=== PATIENT | female | born 1950 | race Caucasian/White ===

== ENCOUNTER 2022-04-28 15:44 | Inpatient (IN) | payer MEDICARE, OTHER ==
[~2022-04-28] VITALS: Ht 165.1 cm; Wt 64.9 kg
--- NOTE | 2022-04-28 16:00 | NUR ---
[id number] FRM [facility] FOR NOTED O2 DESATURATION, TACHYCARDIA AND FEVER X TODAY. PLACED ON BED, AWAKE ALERT RESPONDING TO VERBAL STIMULI, BREATHING EVEN AND UNLABORED SATURATING AT 95%RA, ATTACHED TO MINITOR SINUS TACHY. MO-135, WARM TO TOUCH. HISTORY TRAUMATIC BRAIN INJURY, NORMAL PRESSURE HYDROCEPHALUS.
[2022-04-28] MEDS ORDERED: AMLO-212 PO (16:13)
[2022-04-28] MEDS ORDERED: MAGN400O6 PO (16:13)
[2022-04-28] MEDS ORDERED: BISA10SU11 RC (16:13)
[2022-04-28] MEDS ORDERED: POTA10TA10 PO (16:13)
[2022-04-28] MEDS ORDERED: POLY17PO4 PO (16:13)
[2022-04-28] MEDS ORDERED: CEFT1VIA15 IV (16:13)
[2022-04-28] MEDS ORDERED: HEPA50007 SQ (16:13)
[2022-04-28] MEDS ORDERED: ACET-868 PO (16:13)
[2022-04-28] MEDS ORDERED: ASPI-1169 PO (16:13)
[2022-04-28] MEDS ORDERED: AMIN30LI2 PO (16:13)
[2022-04-28] MEDS ORDERED: ATOR40TA PO (16:13)
[2022-04-28] MEDS ORDERED: ALBU8.5H8 IH (16:13)
[2022-04-28] MEDS ORDERED: NA P133E RC (16:13)
[2022-04-28] MEDS ORDERED: SENN-261 PO (16:13)
--- NOTE | 2022-04-28 16:15 | NUR ---
BLOOD DRAWN SENT TO LAB
[2022-04-28] MEDS ORDERED: ACETAMINOPHEN ES 500 MG TABLET ONE (16:27)
[2022-04-28] MEDS ORDERED: ACETAMINOPHEN ES 500 MG TABLET PO ONE (16:30)
--- NOTE | 2022-04-28 16:40 | NUR ---
SWAB FOR COVID19 SENT TO LAB
[2022-04-28 17:33] LABS: BASOPHILS % (AUTO) 0.1 % (0.0-2.0); EOSINOPHILS % (AUTO) 0.2 % (0.0-6.0); HEMATOCRIT 32 % (33-45); HEMOGLOBIN 10.5 g/dL (11.5-14.8); LYMPHOCYTES # (AUTO) 0.3 K/uL (0.8-4.8); LYMPHOCYTES % (AUTO) 2.4 % (20.0-44.0); MEAN CORPUSCULAR HGB CONC 33 g/dl (31.0-36.0); MEAN CORPUSCULAR VOLUME 83 fL (82-100); MONOCYTES # (AUTO) 0.3 K/uL (0.1-1.30); NEUTROPHILS # (AUTO) 12.9 K/uL (1.8-8.9); NEUTROPHILS % (AUTO) 95.3 % (43.0-81.0); PLATELET COUNT (AUTO) 318 K/uL (150-450); RED BLOOD CELL COUNT(AUTO) 3.87 MIL/uL (4.0-5.2); WHITE BLOOD COUNT (AUTO) 13.5 K/uL (4.3-11.0)
[2022-04-28 17:41] LABS: CALCIUM, SERUM 9.1 mg/dL (8.5-10.1); CARBON DIOXIDE 21 mmol/L (21-32); CHLORIDE 98 mmol/L (98-107); CREATININE 1.1 mg/dL (0.6-1.3); GLUCOSE 102 mg/dL (74-106); SODIUM SERUM 132 mmol/L (136-145); UREA NITROGEN, BLOOD 31 mg/dL (7-18)
[2022-04-28 17:46] LABS: ALANINE AMINOTRANSFERASE 49 U/L (12-78); ALBUMIN 2.2 g/dL (3.4-5.0); ALKALINE PHOSPHATASE 214 U/L (46-116); ASPARTATE AMINOTRANSFERASE 70 U/L (15-37); BILIRUBIN,DIRECT 0.3 mg/dL (0.0-0.2); BILIRUBIN,TOTAL 0.4 mg/dL (0.2-1.0); TOTAL PROTEIN, SERUM 7.7 g/dL (6.4-8.2)
--- NOTE | 2022-04-28 17:52 | NUR ---
CALLED NURSING SUP REGARDING PT BED
[2022-04-28] MEDS ORDERED: VANCOMYCIN 1 GM in IV D5W 250 ML IV ONE (18:00)
[2022-04-28] MEDS ORDERED: CEFEPIME 1 GM in IV D5W 50 ML IV ONE (18:00)
[2022-04-28] MEDS ORDERED: IV NS 0.9% 1,000 ML BAG IV ONE (18:00)
--- NOTE | 2022-04-28 18:20 | NUR ---
PAGED DR. NOBLE
--- NOTE | 2022-04-28 18:57 | NUR ---
ROOM 105
[2022-04-28] MEDS ORDERED: MAGNESIUM HYDROXIDE 30 ML UDC PO PRN (19:00)
[2022-04-28] MEDS ORDERED: Z GUARD REMEDY 4 OZ OINT TP PRN (19:00)
[2022-04-28] MEDS ORDERED: MAG HYDROX/AL HYDROX/SIMETH 30 ML UDC PO PRN (19:00)
[2022-04-28] MEDS ORDERED: ONDANSETRON HCL/PF 4 MG/2 ML VIAL IVP PRN (19:00)
[2022-04-28] MEDS ORDERED: ACETAMINOPHEN 325 MG TABLET PO PRN ×2 (19:00)
--- NOTE | 2022-04-28 19:00 | NUR ---
FOLLEY CATH INSERTED FR16 DRAINING TO A CLOUDY URINE OUTPUT. URINE SAMPLE SENT TO LAB.
[2022-04-28] MEDS ORDERED: ALBUTEROL FS 2.5 MG/0.5 ML VIAL.NEB IH PRN (19:30)
[2022-04-28] MEDS ORDERED: ENOXAPARIN SODIUM 40 MG/0.4 ML DISP.SYRIN SQ SCH (19:30)
--- NOTE | 2022-04-28 19:58 | NUR ---
REPORT GIVEN TO LEVY POWERS 105 FOR [facility]
[2022-04-28 20:00] VITALS: BP 97/52
[2022-04-28 20:01] LABS: BILIRUBIN,URINE MODERATE (NEGATIVE); COLOR,URINE YELLOW (YELLOW); LEUKOCYTE ESTERASE ,URINE MODERATE (NEGATIVE); NITRITE, URINE NEGATIVE (NEGATIVE); PH,URINE 6.5 (5.0-8.0); PROTEIN,URINE >=300 mg/dl (NEGATIVE); UGLUCOSE NEGATIVE (NEGATIVE)
--- NOTE | 2022-04-28 20:05 | NUR ---
LIME KILN OPERATOR NOTES: RECEIVED REPORT FROM [employer] ARCHITECTGIO WALLACE. PT TRANSFERRED TO [facility] FROM [facility] . PLACED IN ROOM 105 BED 1. PT AWAKE, ALERT/ORIENTED X 2 AND VERBALLY RESPONSIVE. BREATHING EVEN AND UNLABORED. ON ROOM AIR AND PT TOLERATED WELL. O2 SAT96%. IV ACCESS ON RT#18G AND LT HAND#20G INTACT AND PATENT. NO S/S OF INFILTRATIONS. BODY ASSESSMENT DONE. NOTED SKIN REDNESS ON LT GROIN AREA AND RT HEEL. NOTED OLD TRACH SITE AND OLD GTUBE SITE. NO OPEN SKIN OR ANY OTHER SKIN DISCOLORATIONS NOTED. NO C/O PAIN OR DISCOMFORT. NO ACUTE DISTRESS. ALL SAFETY MEASURES IN PLACE. BED IN LOWEST POSITION AND LOCKED. SIDE RAILS UP X3, PLACE CALL LIGHT WITH IN REACH. BED ALARM ON. WILL CONTINUE TO MONITOR
[2022-04-28 20:48] LABS: BACTERIA,URINE 4+ /HPF (None Seen); RBC,URINE 51-80 /HPF (0-2); SQUAMOUS EPITHELIAL CELL,UR 0-2 /HPF (None Seen); WBC,URINE TOO NUMEROUS TO COUN /HPF (0-3)
[2022-04-28] MEDS: HEPARIN SODIUM, PORCINE 5000 UNITS/1 ML VIAL SQ SCH (21:57)
[2022-04-28] MEDS: ATORVASTATIN 40 MG TABLET PO SCH (21:58)
[2022-04-28] MEDS: PIPERACILLIN /TAZOBACTAM 2.25 G in IV D5W 50 ML IV SCH (23:42)
--- NOTE | 2022-04-28 23:45 | NUR ---
RN NOTES: PT NOTED INCREASED TEMP 100.8 F. HR 135. TYLENOL 325 MG 2 TABS GIVEN PER PRN ORDER. APPLIED ICE PACK. PT TOLERATED WELL. WILL CONTINUE TO MONITOR
[2022-04-29] VITALS: BP 118/62
--- NOTE | 2022-04-29 01:50 | NUR ---
0150 Patient noted with a fever of 103 deg. Cooling measures rendered. Patient awake and verbally responsive. No signs of distress noted. Will cont to monitor.
[2022-04-29] MEDS: IV NS 0.9% 1,000 ML IV PRN ×2 (03:38→23:04)
[2022-04-29 04:00] VITALS: BP 105/75
[2022-04-29] MEDS: PIPERACILLIN /TAZOBACTAM 2.25 G in IV D5W 50 ML IV SCH ×4 (05:44→23:05)
--- NOTE | 2022-04-29 06:45 | NUR ---
RN CLOSING NOTES: PT AWAKE, ALERT/ORIENTED X 2 AND VERBALLY RESPONSIVE. BREATHING EVEN AND UNLABORED. ON 3L/MIN VIA N/C AND PT TOLERATED WELL. O2 SAT 99%. IV ACCESS ON RT#18G AND LT HAND#20G INTACT AND PATENT. NO S/S OF INFILTRATIONS. RUNNING N/S AT 75CC/HR. PT AFEBRILE. NO C/O PAIN OR DISCOMFORT. NO ACUTE DISTRESS. ALL DUE MEDS GIVEN ORDERED. ECHEVARRIA CATHETER HAS VERY SMALL AMOUNT OF URINE. FLUSHED WITH 30 CC OF NS. PT'S HR STILL AROUND 130-140S. ALL SAFETY MEASURES IN PLACE. BED IN LOWEST POSITION AND LOCKED. SIDE RAILS UP X3, PLACE CALL LIGHT WITH IN REACH. BED ALARM ON. WILL ENDORSE TO MORNING SHIFT NURSE.
[2022-04-29 07:26] LABS: BASOPHILS % (AUTO) 0.1 % (0.0-2.0); EOSINOPHILS % (AUTO) 0.3 % (0.0-6.0); HEMATOCRIT 30 % (33-45); HEMOGLOBIN 9.5 g/dL (11.5-14.8); LYMPHOCYTES # (AUTO) 0.8 K/uL (0.8-4.8); LYMPHOCYTES % (AUTO) 4.6 % (20.0-44.0); MEAN CORPUSCULAR HGB CONC 32 g/dl (31.0-36.0); MEAN CORPUSCULAR VOLUME 84 fL (82-100); MONOCYTES # (AUTO) 1.2 K/uL (0.1-1.30); MONOCYTES % (AUTO) 6.8 % (2.0-12.0); NEUTROPHILS # (AUTO) 15.7 K/uL (1.8-8.9); NEUTROPHILS % (AUTO) 88.2 % (43.0-81.0); PLATELET COUNT (AUTO) 227 K/uL (150-450); RED BLOOD CELL COUNT(AUTO) 3.54 MIL/uL (4.0-5.2); WHITE BLOOD COUNT (AUTO) 17.8 K/uL (4.3-11.0)
--- NOTE | 2022-04-29 07:30 | NUR ---
RN NOTES PT FOUND SUPINE DISPLAYING NO S/S OF DISTRESS, FLACC = 0 AND BREATHING IS EVEN AND UNLABORED ON 3L O2 NC. R HAND 18G & L HAND 20G ARE PATIENT AND INTACT. ECHEVARRIA CATH BELOW PATIENT DRAINING BY GRAVITY. RN WILL CONTINUE CARE PLAN AND ANTICIPATE NEEDS. SAFETY MEASURES IN PLACE, BED LOCKED AND IN LOWEST POSITION, SIDE RAILS UPX2, CALL LIGHT WITHIN REACH, BED ALARM ARMED.
[2022-04-29 08:00] VITALS: BP 80/56
[2022-04-29] MEDS: HEPARIN SODIUM, PORCINE 5000 UNITS/1 ML VIAL SQ SCH ×2 (08:38→21:23)
[2022-04-29] MEDS: VANCOMYCIN 500 MG in IV D5W 100 ML IV SCH ×2 (08:39→20:21)
[2022-04-29] MEDS: POLYETHYLENE GLYCOL 3350 17 GM POWD.PACK PO SCH (08:40)
[2022-04-29] MEDS: AMLODIPINE BESYLATE 5 MG TABLET PO SCH (08:40)
[2022-04-29 08:57] LABS: CALCIUM, SERUM 8.3 mg/dL (8.5-10.1); CREATININE 1.1 mg/dL (0.6-1.3); POTASSIUM 3.3 mmol/L (3.5-5.1)
[2022-04-29] MEDS ORDERED: PANTOPRAZOLE 40 MG VIAL IV SCH (09:00)
[2022-04-29 12:00] VITALS: BP 89/45
[2022-04-29] MEDS ORDERED: POTASSIUM CL. PREMIX PERIPHER. 50 ML IV SCH (13:00)
[2022-04-29 16:00] VITALS: BP 87/53
[2022-04-29] MEDS: ASPIRIN 81 MG TAB.CHEW PO SCH (17:54)
--- NOTE | 2022-04-29 18:00 | NUR ---
MD COMMUNICATION RN INFORMED MD THAT PT'S FAMILY HAD CONCERNS OF HEMORRHAGIC STROKE. DR NOBLE GAVE ORDERS: CT OF HEAD W/O CONTRAST. RN ACKNOWLEDGED AND WILL ENTER ORDERS.
--- NOTE | 2022-04-29 19:26 | NUR ---
RN NOTES PT FOUND SUPINE DISPLAYING NO S/S OF DISTRESS, PT ENDORSES NO PAIN AND BREATHING IS EVEN AND UNLABORED ON 3L O2 NC. R HAND 18G & L HAND 20G ARE PATIENT AND INTACT. ECHEVARRIA CATH BELOW PATIENT DRAINING BY GRAVITY. SBAR AND REPORT GIVEN TO POWDER BLENDER RN, ALL QUESTIONS ANSWERED. SAFETY MEASURES IN PLACE, BED LOCKED AND IN LOWEST POSITION, SIDE RAILS UPX2, CALL LIGHT WITHIN REACH, BED ALARM ARMED.
--- NOTE | 2022-04-29 19:35 | NUR ---
RN OPENING NOTES: RECEIVED PT IN BED, AWAKE, ALERT/ORIENTED X 2 AND VERBALLY RESPONSIVE. BREATHING EVEN AND UNLABORED. ON 3L/MIN VIA N/C AND PT TOLERATED WELL. IV ACCESS ON RT#18G AND LT HAND#20G INTACT AND PATENT. NO S/S OF INFILTRATIONS. RUNNING N/S AT 75CC/HR. NO C/O PAIN OR DISCOMFORT. NO ACUTE DISTRESS. ECHEVARRIA CATHETER IN PLACE. RUNNING BY GRAVITY WITH YELLOWISH/CLEAR URINE. ALL SAFETY MEASURES IN PLACE. BED IN LOWEST POSITION AND LOCKED. SIDE RAILS UP X3, PLACE CALL LIGHT WITH IN REACH. BED ALARM ON. WILL CONTINUE TO MONITOR
[2022-04-29 20:00] VITALS: BP 87/52
[2022-04-29] MEDS: ATORVASTATIN 40 MG TABLET PO SCH (21:22)
[2022-04-30] VITALS: BP 89/53
[2022-04-30 04:00] VITALS: BP 105/48
[2022-04-30] MEDS: PIPERACILLIN /TAZOBACTAM 2.25 G in IV D5W 50 ML IV SCH ×4 (05:07→23:44)
--- NOTE | 2022-04-30 06:34 | NUR ---
RN CLOSING NOTES: PT IN BED, AWAKE, ALERT/ORIENTED X 2-3 AND VERBALLY RESPONSIVE. BREATHING EVEN AND UNLABORED. ON 3L/MIN VIA N/C AND PT TOLERATED WELL. O2 SAT 100%. IV ACCESS ON RT#18G AND LT HAND#20G INTACT AND PATENT. NO S/S OF INFILTRATIONS. RUNNING N/S AT 75CC/HR. NO C/O PAIN OR DISCOMFORT. NO ACUTE DISTRESS. ECHEVARRIA CATHETER IN PLACE. RUNNING BY GRAVITY WITH YELLOWISH/CLOUDY URINE. ALL DUE MEDS GIVEN ORDERED. ALL SAFETY MEASURES IN PLACE. BED IN LOWEST POSITION AND LOCKED. SIDE RAILS UP X3, PLACE CALL LIGHT WITH IN REACH. BED ALARM ON. WILL ENDORSE TO MORNING SHIFT NURSE.
[2022-04-30 07:28] LABS: BASOPHILS % (AUTO) 0.4 % (0.0-2.0); EOSINOPHILS % (AUTO) 1.7 % (0.0-6.0); HEMATOCRIT 28 % (33-45); HEMOGLOBIN 9.1 g/dL (11.5-14.8); LYMPHOCYTES # (AUTO) 1.5 K/uL (0.8-4.8); LYMPHOCYTES % (AUTO) 12.3 % (20.0-44.0); MEAN CORPUSCULAR HGB CONC 33 g/dl (31.0-36.0); MEAN CORPUSCULAR VOLUME 84 fL (82-100); MONOCYTES # (AUTO) 0.7 K/uL (0.1-1.30); MONOCYTES % (AUTO) 5.8 % (2.0-12.0); NEUTROPHILS # (AUTO) 9.5 K/uL (1.8-8.9); NEUTROPHILS % (AUTO) 79.8 % (43.0-81.0); PLATELET COUNT (AUTO) 210 K/uL (150-450); RED BLOOD CELL COUNT(AUTO) 3.29 MIL/uL (4.0-5.2); WHITE BLOOD COUNT (AUTO) 11.9 K/uL (4.3-11.0)
[2022-04-30 07:41] LABS: CALCIUM, SERUM 7.9 mg/dL (8.5-10.1); CREATININE 0.9 mg/dL (0.6-1.3); MAGNESIUM 2.2 mg/dL (1.8-2.4); POTASSIUM 3.3 mmol/L (3.5-5.1)
[2022-04-30 08:00] VITALS: BP 121/58
--- NOTE | 2022-04-30 08:00 | NUR ---
RN OPENING NOTES: PT IN BED, AWAKE, ALERT/ORIENTED X 2-3 AND VERBALLY RESPONSIVE. BREATHING EVEN AND UNLABORED. ON 3L/MIN VIA N/C AND PT TOLERATED WELL. O2 SAT 100%. IV ACCESS ON RT#18G AND LT HAND#20G INTACT AND PATENT. NO S/S OF INFILTRATIONS. RUNNING N/S AT 75CC/HR. NO C/O PAIN OR DISCOMFORT. NO ACUTE DISTRESS. ECHEVARRIA CATHETER IN PLACE. RUNNING BY GRAVITY WITH YELLOWISH/CLOUDY URINE. ALL SAFETY MEASURES IN PLACE. BED IN LOWEST POSITION AND LOCKED. SIDE RAILS UP X3, PLACE CALL LIGHT WITH IN REACH. BED ALARM ON. WILL CONTINUE PLAN OF CARE AND ANTICIPATE NEEDS.
[2022-04-30] MEDS: VANCOMYCIN 500 MG in IV D5W 100 ML IV SCH ×2 (08:24→20:07)
[2022-04-30] MEDS: PANTOPRAZOLE 40 MG TABLET.DR PO SCH (09:32)
[2022-04-30] MEDS: POLYETHYLENE GLYCOL 3350 17 GM POWD.PACK PO SCH (09:32)
[2022-04-30] MEDS: HEPARIN SODIUM, PORCINE 5000 UNITS/1 ML VIAL SQ SCH ×2 (09:44→20:08)
[2022-04-30] MEDS: AMLODIPINE BESYLATE 5 MG TABLET PO SCH (09:45)
[2022-04-30] MEDS ORDERED: POTASSIUM CHLORIDE 20 MEQ TAB.PRT.SR PO SCH (10:00)
[2022-04-30 12:00] VITALS: BP 104/57
[2022-04-30 16:00] VITALS: BP 117/49
[2022-04-30] MEDS: ASPIRIN 81 MG TAB.CHEW PO SCH (17:56)
[2022-04-30] MEDS: IV NS 0.9% 1,000 ML IV PRN (18:00)
--- NOTE | 2022-04-30 18:27 | NUR ---
RN CLOSING NOTES: PT IN BED, AWAKE, ALERT/ORIENTED X 2-3 AND VERBALLY RESPONSIVE. BREATHING EVEN AND UNLABORED. ON 3L/MIN VIA N/C AND PT TOLERATED WELL. O2 SAT 100%. IV ACCESS ON RT#18G AND LT HAND#20G INTACT AND PATENT. NO S/S OF INFILTRATIONS. RUNNING N/S AT 75CC/HR. NO C/O PAIN OR DISCOMFORT. NO ACUTE DISTRESS. ECHEVARRIA CATHETER IN PLACE. RUNNING BY GRAVITY WITH YELLOWISH/CLOUDY URINE. ALL SAFETY MEASURES IN PLACE. BED IN LOWEST POSITION AND LOCKED. SIDE RAILS UP X3, PLACE CALL LIGHT WITH IN REACH. BED ALARM ON. ALL DUE MEDICATIONS ADMINISTERED. KEPT CLEAN, DRY AND SAFE THROUGHOUT SHIFT. WILL ENDORSE TO NIGHTSHIFT RN FOR CONTINUATION OF CARE.
--- NOTE | 2022-04-30 19:16 | NUR ---
RN OPENING NOTES: PT IN BED, AWAKE, ALERT/ORIENTED X 2-3 AND VERBALLY RESPONSIVE. BREATHING EVEN AND UNLABORED. ON 3L/MIN VIA N/C AND PT TOLERATED WELL. O2 SAT 100%. IV ACCESS ON RT#18G AND LT HAND#20G INTACT AND PATENT. NO S/S OF INFILTRATIONS. RUNNING N/S AT 75CC/HR. NO C/O PAIN OR DISCOMFORT. NO ACUTE DISTRESS. ECHEVARRIA CATHETER IN PLACE. RUNNING BY GRAVITY WITH YELLOWISH/CLOUDY URINE. ALL SAFETY MEASURES IN PLACE. BED IN LOWEST POSITION AND LOCKED. SIDE RAILS UP X3, PLACE CALL LIGHT WITH IN REACH. BED ALARM ON. . KEEP CLEAN, DRY AT ALL TIMES. WILL CONTINUE TO MONITOR,.
[2022-04-30 20:00] VITALS: BP 100/47
[2022-04-30] MEDS: ATORVASTATIN 40 MG TABLET PO SCH (22:22)
[2022-05-01 04:14] VITALS: BP 99/46
[2022-05-01] MEDS: PIPERACILLIN /TAZOBACTAM 2.25 G in IV D5W 50 ML IV SCH ×4 (06:07→23:52)
--- NOTE | 2022-05-01 06:40 | NUR ---
RN CLOSING NOTES: PT IN BED, AWAKE, ALERT/ORIENTED X 2-3 AND VERBALLY RESPONSIVE. BREATHING EVEN AND UNLABORED. ON ROOM AIR TOLERATED WELL. O2 SAT 100%. IV ACCESS ON RT#18G AND LT HAND#20G INTACT AND PATENT. NO S/S OF INFILTRATIONS. RUNNING N/S AT 75CC/HR. NO C/O PAIN OR DISCOMFORT. NO ACUTE DISTRESS. ECHEVARRIA CATHETER IN PLACE. RUNNING BY GRAVITY WITH YELLOWISH/CLOUDY URINE. ALL SAFETY MEASURES IN PLACE. BED IN LOWEST POSITION AND LOCKED. SIDE RAILS UP X3, PLACE CALL LIGHT WITH IN REACH. BED ALARM ON. . KEEP CLEAN, DRY AT ALL TIMES.ALL DUE MEDS GIVEN AND TOLERATED WELL. WILL ENDORSE CARE TO DAY SHIFT NURSE.
--- NOTE | 2022-05-01 07:11 | NUR ---
RN OPENING NOTES: PT IN BED, AWAKE, ALERT/ORIENTED X 2-3 AND VERBALLY RESPONSIVE. BREATHING EVEN AND UNLABORED. ON 3L/MIN VIA N/C AND PT TOLERATED WELL. IV ACCESS ON RT#18G AND LT HAND#20G INTACT AND PATENT. NO S/S OF INFILTRATIONS. RUNNING N/S AT 75CC/HR. NO C/O PAIN OR DISCOMFORT. NO ACUTE DISTRESS. ECHEVARRIA CATHETER IN PLACE. RUNNING BY GRAVITY WITH YELLOWISH/CLOUDY URINE. ALL SAFETY MEASURES IN PLACE. BED IN LOWEST POSITION AND LOCKED. SIDE RAILS UP X3, PLACE CALL LIGHT WITH IN REACH. BED ALARM ON.
[2022-05-01 07:14] LABS: CREATININE 0.7 mg/dL (0.6-1.3); POTASSIUM 3.3 mmol/L (3.5-5.1)
[2022-05-01] MEDS: POLYETHYLENE GLYCOL 3350 17 GM POWD.PACK PO SCH (08:33)
[2022-05-01] MEDS: PANTOPRAZOLE 40 MG TABLET.DR PO SCH (08:34)
[2022-05-01] MEDS: AMLODIPINE BESYLATE 5 MG TABLET PO SCH (08:34)
[2022-05-01] MEDS: HEPARIN SODIUM, PORCINE 5000 UNITS/1 ML VIAL SQ SCH ×2 (08:35→22:03)
[2022-05-01] MEDS: VANCOMYCIN 500 MG in IV D5W 100 ML IV SCH ×2 (08:36→20:13)
[2022-05-01 09:03] VITALS: BP 107/57
[2022-05-01] MEDS ORDERED: POTASSIUM CHLORIDE 20 MEQ TAB.PRT.SR PO SCH (11:30)
[2022-05-01] MEDS: IV NS 0.9% 1,000 ML IV PRN (12:30)
[2022-05-01] MEDS: ASPIRIN 81 MG TAB.CHEW PO SCH (18:23)
--- NOTE | 2022-05-01 18:43 | NUR ---
RN CLOSING NOTES PT IN BED, AWAKE, ALERT/ORIENTED X 2-3 AND VERBALLY RESPONSIVE. BREATHING EVEN AND UNLABORED. ON ROOM AIR TOLERATED WELL. O2 SAT 100%. IV ACCESS ON RT#18G AND LT HAND#20G INTACT AND PATENT. NO S/S OF INFILTRATIONS. RUNNING N/S AT 75CC/HR. NO C/O PAIN OR DISCOMFORT. NO ACUTE DISTRESS. ECHEVARRIA CATHETER IN PLACE. RUNNING BY GRAVITY WITH YELLOWISH/CLOUDY URINE. ALL SAFETY MEASURES IN PLACE. BED IN LOWEST POSITION AND LOCKED. SIDE RAILS UP X3, PLACE CALL LIGHT WITH IN REACH. BED ALARM ON. . KEEP CLEAN, DRY AT ALL TIMES.ALL DUE MEDS GIVEN AND TOLERATED WELL. WILL ENDORSE CARE TO CURRICULUM AND ASSESSMENT COORDINATOR NURSE.
--- NOTE | 2022-05-01 19:10 | NUR ---
RN NOTES RECEIVED REPORT FROM MORNING RN. PATIENT IN BED A/O X2-3, ABLE TO MAKE NEEDS KNOWN. WITH OXYGEN INHALATION AT 2LMP TOLERATING WELL SATING 100% NO SOB NO DISTRESS NOTED AT THIS TIME. WITH IV ACCESS AT R HAND # 18, L HAND # 20 PATENT FLUSHES WELL WITH ONGOING IVF NS @ 75CC/HR. ALL SAFETY MEASURES IN PLACE AT ALL TIMES. HOB ELEVATED. CALL LIGHT WITHIN REACH. BED ON LOWEST POSITION AND LOCKED. WILL CLOSELY MONITOR THE PATIENT
[2022-05-01 21:00] VITALS: BP 113/58
[2022-05-01] MEDS: ATORVASTATIN 40 MG TABLET PO SCH (22:03)
[2022-05-02] MEDS: PIPERACILLIN /TAZOBACTAM 2.25 G in IV D5W 50 ML IV SCH ×2 (05:09→11:54)
[2022-05-02] MEDS: IV NS 0.9% 1,000 ML IV PRN (05:20)
--- NOTE | 2022-05-02 06:45 | NUR ---
N CLOSING NOTES PT IN BED, AWAKE, ALERT/ORIENTED X 2-3 AND VERBALLY RESPONSIVE. BREATHING EVEN AND UNLABORED. ON ROOM AIR TOLERATED WELL. O2 SAT 100%. IV ACCESS ON RT#18G AND LT HAND#20G INTACT AND PATENT. NO S/S OF INFILTRATIONS. RUNNING N/S AT 75CC/HR. NO C/O PAIN OR DISCOMFORT. NO ACUTE DISTRESS. ECHEVARRIA CATHETER IN PLACE. RUNNING BY GRAVITY WITH YELLOWISH/CLOUDY URINE. ALL SAFETY MEASURES IN PLACE. BED IN LOWEST POSITION AND LOCKED. SIDE RAILS UP X3, PLACE CALL LIGHT WITH IN REACH. BED ALARM ON. . KEEP CLEAN, DRY AT ALL TIMES.ALL DUE MEDS GIVEN AND TOLERATED WELL. WILL ENDORSE CARE TO MORNING SHIFT NURSE.
[2022-05-02 07:22] LABS: CALCIUM, SERUM 7.8 mg/dL (8.5-10.1); CREATININE 0.7 mg/dL (0.6-1.3)
[2022-05-02] MEDS: PANTOPRAZOLE 40 MG TABLET.DR PO SCH (07:30)
--- NOTE | 2022-05-02 07:30 | NUR ---
RN OPENING NOTES PATIENT IN BED, AWAKE, ALERT/ORIENTED X 2-3. PATIENT IS ON ROOM AIR TOLERATED WELL. O2 SAT 100%. IV ACCESS ON RT#18G AND LT HAND#20G INTACT AND PATENT. NO S/S OF INFILTRATIONS. RUNNING NORMAL SALINE RUNNING AT 75CC/HR. NO PAIN OR DISCOMFORT. NO ACUTE DISTRESS. ECHEVARRIA CATHETER IN PLACE. DRAINING BY GRAVITY WITH YELLOWISH/CLOUDY URINE. ALL SAFETY MEASURES IN PLACE. BED IN LOWEST POSITION AND LOCKED. SIDE RAILS UP X3, PLACE CALL LIGHT WITH IN REACH. BED ALARM ON. WILL CONTINUE TO ASSESS THROUGHOUT SHIFT
--- NOTE | 2022-05-02 08:25 | NUR ---
WOUND CARE CONSULT: PT SEEN FOR SKIN ASSESSMENT AND NOTED TO HAVE BLANCHABLE REDNESS TO HEELS AND VERY BONY SACRAL AREA, PRESENT ON ADMISSION. RECOMMENDATIONS MADE FOR SKIN PROTECTION. DISCUSSED WITH NURSING STAFF. MD IN AGREEMENT WITH PLAN OF CARE. PT TO BE PLACED ON ISOFLEX LOW AIRLOSS BED WHEN AVAILABLE.
[2022-05-02 09:00] VITALS: BP 121/61
[2022-05-02] MEDS: HEPARIN SODIUM, PORCINE 5000 UNITS/1 ML VIAL SQ SCH (09:00)
[2022-05-02] MEDS: AMLODIPINE BESYLATE 5 MG TABLET PO SCH (09:00)
[2022-05-02] MEDS: VANCOMYCIN 500 MG in IV D5W 100 ML IV SCH (09:05)
[2022-05-02] MEDS: POLYETHYLENE GLYCOL 3350 17 GM POWD.PACK PO SCH (09:06)
[2022-05-02] MEDS: POTASSIUM CHLORIDE 20 MEQ TAB.PRT.SR PO SCH ×3 (11:53→14:20)
[2022-05-02 12:00] VITALS: BP 120/60
[2022-05-02 16:00] VITALS: BP 138/66
--- NOTE | 2022-05-02 17:40 | NUR ---
[facility] Addendum: 05/02/22 at 1851 by ZOHREH GONZALEZ RN gave report to transport for pickup
--- NOTE | 2022-05-02 18:51 | NUR ---
discharge patient discharge
== END 2022-05-02 19:03 | DRG 871 ==
LOC: ER 15:46 → TELE1 19:44 → MEDSG1 04-30 16:07
PROVIDERS: ADMIT Legal Medicine; ATTEND Legal Medicine
PROC: 05HB33Z Insertion of Infusion Device into Right Basilic Vein, Percutaneous Approach (ICD-10-PCS; principal; 2022-05-01)
DX: A41.9 Sepsis, unspecified organism (principal); G92.8 Other toxic encephalopathy; N39.0 Urinary tract infection, site not specified; E87.2 Acidosis; E87.1 Hypo-osmolality and hyponatremia; G91.2 (Idiopathic) normal pressure hydrocephalus; I10 Essential (primary) hypertension; R65.20 Severe sepsis without septic shock; E78.5 Hyperlipidemia, unspecified; K21.9 Gastro-esophageal reflux disease without esophagitis; Z86.73 Personal history of transient ischemic attack (TIA), and cerebral infarction without residual deficits; Z87.820 Personal history of traumatic brain injury; F03.90 Unspecified dementia, unspecified severity, without behavioral disturbance, psychotic disturbance, mood disturbance, and anxiety; M19.90 Unspecified osteoarthritis, unspecified site; Z20.822 Contact with and (suspected) exposure to COVID-19
CPT/HCPCS: 36410; 36415; 70450-TC; 71045-TC; 80048-TC; 80076-TC; 80202-TC; 81001; 83605-TC; 83735-TC; 84484-TC; 85025-TC; 85730-TC; 87040-TC; 87081-TC; 87086-TC; 92526; 92611-TC; 94799-TC; 97112-TC; 97530-TC; C9113; C9803; G0378; J0692; J1644; J2543; J3370; J3480; J7030; J7060